=== PATIENT | female | born 1940 | race Hispanic/Latino ===

== ENCOUNTER → 2017-06-09 | Outpatient (RCR) | payer MEDICARE, OTHER | LOC: OT 10:43 | PROVIDERS: ATTEND Surgery Surgery of the Hand | DX: S52.121D Displaced fracture of head of right radius, subsequent encounter for closed fracture with routine healing (principal); M25.521 Pain in right elbow; M25.621 Stiffness of right elbow, not elsewhere classified; M25.631 Stiffness of right wrist, not elsewhere classified; R53.1 Weakness | CPT/HCPCS: 97110; 97165; G8987; G8988 ==

== ENCOUNTER → 2017-07-10 | Outpatient (RCR) | payer MEDICARE, OTHER | LOC: OT 06-12 11:01 | PROVIDERS: ATTEND Surgery Surgery of the Hand | DX: S52.121D Displaced fracture of head of right radius, subsequent encounter for closed fracture with routine healing (principal); M25.521 Pain in right elbow; M25.621 Stiffness of right elbow, not elsewhere classified; M25.631 Stiffness of right wrist, not elsewhere classified; R53.1 Weakness | CPT/HCPCS: 97010 ×9; 97110 ×9; G8987; G8988 ==

== ENCOUNTER 2017-07-18 10:34 | Outpatient (RCR) | payer MEDICARE, OTHER | END 2017-08-09 | LOC: OT 10:34 | PROVIDERS: ATTEND Surgery Surgery of the Hand | DX: S52.121D Displaced fracture of head of right radius, subsequent encounter for closed fracture with routine healing (principal) | CPT/HCPCS: 97010 ×2; 97110 ×2; G8988; G8989 ==